=== PATIENT | male | born 1940 | race Caucasian/White ===

== ENCOUNTER 2016-09-01 07:40 | Emergency (ER) | payer MEDICARE ==
[2016-09-01 08:38] LABS: BASOPHIL 0.3 % (0-2); EOSINOPHIL 2.4 % (0-7); HCT 41.9 % (42.0-52.0); HGB 13.9 g/dl (13.2-18.0); LYMPHOCYTE 21.2 % (15-48); MCHC 33.2 g/dL (32.0-36.0); MCV 90.3 fL (78.0-100.0); MPV 9.8 fL (6.0-9.5); NEUTROPHIL 67.1 % (41-80); PLT 219 K/uL (150-400); RBC 4.64 M/uL (4.70-6.00); RDW 14.3 % (11.5-14.0); WBC 7.2 K/uL (4.0-10.5)
[2016-09-01 08:52] LABS: INR 1.06 (0.9-1.2); PROTHROMBIN TIME 13.4 SECONDS (11.7-14.0); PTT 33.6 SECONDS (23.2-31.4)
[2016-09-01 09:02] LABS: CKMB 3.97 ng/mL (0.97-4.94); MYOGLOBIN 94 ng/mL (26-65); TROPONIN T < 0.010 ng/mL
[2016-09-01 09:03] LABS: ALBUMIN 4.3 g/dL (3.4-4.8); BILIRUBIN - TOTAL 0.7 mg/dL (0.1-1.0); CREATININE 0.9 mg/dL (0.7-1.2); POTASSIUM 3.8 mmol/L (3.5-5.1); TOTAL PROTEIN 7.3 g/dL (6.4-8.3)
[2016-09-01 09:06] LABS: BILIRUBIN NEGATIVE (NEGATIVE); BLOOD NEGATIVE Ery/uL (NEGATIVE); CLARITY CLEAR (CLEAR); COLOR YELLOW (YELLOW); GLUCOSE (U) NORMAL (NORMAL); KETONE (U) NEGATIVE (NEGATIVE); LEUKOCYTES NEGATIVE Leu/uL (NEGATIVE); NITRITE NEGATIVE (NEGATIVE); PROTEIN NEGATIVE (NEGATIVE); UROBILINOGEN 0.2 mg/dL (0.2-1.0)
== END 2016-09-01 08:50 | disposition other institution (70) ==
LOC: FER 07:40
PROVIDERS: Internal Medicine
DX: I63.9 Cerebral infarction, unspecified (principal); G81.90 Hemiplegia, unspecified affecting unspecified side; R29.702 NIHSS score 2; I44.0 Atrioventricular block, first degree; E11.40 Type 2 diabetes mellitus with diabetic neuropathy, unspecified; E78.5 Hyperlipidemia, unspecified; I10 Essential (primary) hypertension; Z79.84 Long term (current) use of oral hypoglycemic drugs; Z79.899 Other long term (current) drug therapy; Z79.1 Long term (current) use of non-steroidal anti-inflammatories (NSAID)
CPT/HCPCS: 36415; 70450; 71010; 80053; 80061; 81003; 82550; 82553; 83874; 84484; 85025; 85610; 85730; 93005